=== PATIENT | female | born 1950 | race Caucasian/White ===

== ENCOUNTER → 2021-02-04 | Outpatient (CLI) | payer MEDICARE | LOC: KOH-I 11:10 | DX: M14.60 Charcot's joint, unspecified site (principal); M19.072 Primary osteoarthritis, left ankle and foot; M19.071 Primary osteoarthritis, right ankle and foot | CPT/HCPCS: 73610; 73630 ==

== ENCOUNTER → 2021-02-08 | Outpatient (CLI) | payer MEDICARE | LOC: KOH-I 08:15 | DX: E11.610 Type 2 diabetes mellitus with diabetic neuropathic arthropathy (principal); E11.621 Type 2 diabetes mellitus with foot ulcer; L97.529 Non-pressure chronic ulcer of other part of left foot with unspecified severity | CPT/HCPCS: 73718 ==

== ENCOUNTER → 2021-05-22 | Outpatient (CLI) | payer MEDICARE ==
[2021-05-22 15:12] LABS: HEMOGLOBIN 8.5 gm/dl (12.3-15.3); RED BLOOD COUNT 3.19 M/UL (4.00-5.10); WHITE BLOOD COUNT 6.9 K/UL (4.5-11.0)
[2021-05-22 15:32] LABS: BUN/CREATININE RATIO 16 (0-10)
== END ==
LOC: OPSV 13:50
PROVIDERS: Internal Medicine Infectious Disease
DX: E11.628 Type 2 diabetes mellitus with other skin complications (principal); S91.302D Unspecified open wound, left foot, subsequent encounter
CPT/HCPCS: 80053; 85025; 86140

== ENCOUNTER → 2021-05-23 | Outpatient (CLI) | payer MEDICARE | LOC: WCC 14:15 | DX: E11.621 Type 2 diabetes mellitus with foot ulcer (principal); L97.425 Non-pressure chronic ulcer of left heel and midfoot with muscle involvement without evidence of necrosis; E11.610 Type 2 diabetes mellitus with diabetic neuropathic arthropathy; I11.9 Hypertensive heart disease without heart failure; I25.10 Atherosclerotic heart disease of native coronary artery without angina pectoris; I48.91 Unspecified atrial fibrillation; E11.40 Type 2 diabetes mellitus with diabetic neuropathy, unspecified; F17.210 Nicotine dependence, cigarettes, uncomplicated; E66.01 Morbid (severe) obesity due to excess calories; Z68.34 Body mass index [BMI] 34.0-34.9, adult; Z79.2 Long term (current) use of antibiotics; Z79.899 Other long term (current) drug therapy ==

== ENCOUNTER → 2021-06-07 | Outpatient (CLI) | payer MEDICARE | LOC: WCC 09:27 | DX: E11.621 Type 2 diabetes mellitus with foot ulcer (principal); I10 Essential (primary) hypertension; L97.922 Non-pressure chronic ulcer of unspecified part of left lower leg with fat layer exposed; I25.10 Atherosclerotic heart disease of native coronary artery without angina pectoris; I48.91 Unspecified atrial fibrillation; E11.40 Type 2 diabetes mellitus with diabetic neuropathy, unspecified; E66.01 Morbid (severe) obesity due to excess calories; M14.672 Charcot's joint, left ankle and foot; Z68.34 Body mass index [BMI] 34.0-34.9, adult; Z79.899 Other long term (current) drug therapy ==

== ENCOUNTER → 2021-06-13 | Outpatient (CLI) | payer MEDICARE | LOC: WCC 14:42 | DX: E11.621 Type 2 diabetes mellitus with foot ulcer (principal); L97.525 Non-pressure chronic ulcer of other part of left foot with muscle involvement without evidence of necrosis; E11.610 Type 2 diabetes mellitus with diabetic neuropathic arthropathy; E11.40 Type 2 diabetes mellitus with diabetic neuropathy, unspecified; D64.9 Anemia, unspecified; I10 Essential (primary) hypertension; I25.10 Atherosclerotic heart disease of native coronary artery without angina pectoris; I48.91 Unspecified atrial fibrillation; Z72.0 Tobacco use; E66.01 Morbid (severe) obesity due to excess calories | CPT/HCPCS: 87070; 87205 ==

== ENCOUNTER → 2021-06-25 | Outpatient (CLI) | payer MEDICARE | LOC: WCC 14:00 | DX: E11.621 Type 2 diabetes mellitus with foot ulcer (principal); L97.422 Non-pressure chronic ulcer of left heel and midfoot with fat layer exposed; E11.610 Type 2 diabetes mellitus with diabetic neuropathic arthropathy; I10 Essential (primary) hypertension; I25.10 Atherosclerotic heart disease of native coronary artery without angina pectoris; I48.91 Unspecified atrial fibrillation; E66.01 Morbid (severe) obesity due to excess calories; Z68.34 Body mass index [BMI] 34.0-34.9, adult; Z79.899 Other long term (current) drug therapy ==

== ENCOUNTER → 2021-07-02 | Outpatient (CLI) | payer MEDICARE | LOC: WCC 14:13 | DX: E11.621 Type 2 diabetes mellitus with foot ulcer (principal); L97.425 Non-pressure chronic ulcer of left heel and midfoot with muscle involvement without evidence of necrosis; E11.40 Type 2 diabetes mellitus with diabetic neuropathy, unspecified; E11.610 Type 2 diabetes mellitus with diabetic neuropathic arthropathy; I11.9 Hypertensive heart disease without heart failure; I25.10 Atherosclerotic heart disease of native coronary artery without angina pectoris; I48.91 Unspecified atrial fibrillation; E66.01 Morbid (severe) obesity due to excess calories; F17.200 Nicotine dependence, unspecified, uncomplicated; Z68.34 Body mass index [BMI] 34.0-34.9, adult; Z79.899 Other long term (current) drug therapy ==

== ENCOUNTER → 2021-07-15 | Outpatient (CLI) | payer MEDICARE | LOC: WCC 15:00 | DX: E11.621 Type 2 diabetes mellitus with foot ulcer (principal); L97.422 Non-pressure chronic ulcer of left heel and midfoot with fat layer exposed; I10 Essential (primary) hypertension; I25.10 Atherosclerotic heart disease of native coronary artery without angina pectoris; I48.91 Unspecified atrial fibrillation; E11.40 Type 2 diabetes mellitus with diabetic neuropathy, unspecified; E66.01 Morbid (severe) obesity due to excess calories; E11.610 Type 2 diabetes mellitus with diabetic neuropathic arthropathy; Z68.34 Body mass index [BMI] 34.0-34.9, adult ==

== ENCOUNTER → 2021-07-29 | Outpatient (CLI) | payer MEDICARE | LOC: WCC 11:17 | DX: E11.621 Type 2 diabetes mellitus with foot ulcer (principal); L97.422 Non-pressure chronic ulcer of left heel and midfoot with fat layer exposed; Z68.34 Body mass index [BMI] 34.0-34.9, adult; E11.40 Type 2 diabetes mellitus with diabetic neuropathy, unspecified; I48.91 Unspecified atrial fibrillation; D64.9 Anemia, unspecified; I10 Essential (primary) hypertension; I25.10 Atherosclerotic heart disease of native coronary artery without angina pectoris; E66.01 Morbid (severe) obesity due to excess calories; E11.610 Type 2 diabetes mellitus with diabetic neuropathic arthropathy ==

== ENCOUNTER → 2021-08-05 | Outpatient (CLI) | payer MEDICARE | LOC: RAD 14:35 | DX: E11.621 Type 2 diabetes mellitus with foot ulcer (principal); L97.519 Non-pressure chronic ulcer of other part of right foot with unspecified severity | CPT/HCPCS: 73630 ==

== ENCOUNTER → 2021-08-05 | Outpatient (CLI) | payer MEDICARE | LOC: WCC 11:43 | DX: E11.621 Type 2 diabetes mellitus with foot ulcer (principal); L97.525 Non-pressure chronic ulcer of other part of left foot with muscle involvement without evidence of necrosis; I10 Essential (primary) hypertension; I25.10 Atherosclerotic heart disease of native coronary artery without angina pectoris; I48.91 Unspecified atrial fibrillation; E11.40 Type 2 diabetes mellitus with diabetic neuropathy, unspecified; E66.01 Morbid (severe) obesity due to excess calories; E11.610 Type 2 diabetes mellitus with diabetic neuropathic arthropathy; Z68.34 Body mass index [BMI] 34.0-34.9, adult | CPT/HCPCS: 87070; 87077; 87186; 87205 ==

== ENCOUNTER → 2021-08-12 | Outpatient (CLI) | payer MEDICARE | END | disposition home or self-care (01) | LOC: WCC 11:35 | DX: E11.621 Type 2 diabetes mellitus with foot ulcer (principal); L97.422 Non-pressure chronic ulcer of left heel and midfoot with fat layer exposed; L97.412 Non-pressure chronic ulcer of right heel and midfoot with fat layer exposed; I10 Essential (primary) hypertension; I25.10 Atherosclerotic heart disease of native coronary artery without angina pectoris; I48.91 Unspecified atrial fibrillation; E11.40 Type 2 diabetes mellitus with diabetic neuropathy, unspecified; M14.672 Charcot's joint, left ankle and foot; R60.0 Localized edema; E66.01 Morbid (severe) obesity due to excess calories; Z79.899 Other long term (current) drug therapy; Z68.34 Body mass index [BMI] 34.0-34.9, adult | CPT/HCPCS: 87070; 87077; 87186; 87205 ==

== ENCOUNTER → 2021-08-19 | Outpatient (CLI) | payer MEDICARE | LOC: WCC 08:39 | DX: E11.621 Type 2 diabetes mellitus with foot ulcer (principal); L97.522 Non-pressure chronic ulcer of other part of left foot with fat layer exposed; D64.9 Anemia, unspecified; E11.40 Type 2 diabetes mellitus with diabetic neuropathy, unspecified; I48.91 Unspecified atrial fibrillation; E11.610 Type 2 diabetes mellitus with diabetic neuropathic arthropathy; I10 Essential (primary) hypertension; I25.10 Atherosclerotic heart disease of native coronary artery without angina pectoris; Z72.0 Tobacco use; E66.01 Morbid (severe) obesity due to excess calories; Z68.34 Body mass index [BMI] 34.0-34.9, adult ==

== ENCOUNTER → 2021-09-10 | Outpatient (CLI) | payer MEDICARE | LOC: WCC 08:36 | DX: E11.621 Type 2 diabetes mellitus with foot ulcer (principal); L97.425 Non-pressure chronic ulcer of left heel and midfoot with muscle involvement without evidence of necrosis; L97.412 Non-pressure chronic ulcer of right heel and midfoot with fat layer exposed; I10 Essential (primary) hypertension; I25.10 Atherosclerotic heart disease of native coronary artery without angina pectoris; I48.91 Unspecified atrial fibrillation; E11.40 Type 2 diabetes mellitus with diabetic neuropathy, unspecified; E66.01 Morbid (severe) obesity due to excess calories; M14.672 Charcot's joint, left ankle and foot; E11.36 Type 2 diabetes mellitus with diabetic cataract; H26.9 Unspecified cataract; I25.2 Old myocardial infarction; Z72.0 Tobacco use; Z95.828 Presence of other vascular implants and grafts | CPT/HCPCS: 87070; 87077; 87186; 87205 ==

== ENCOUNTER → 2021-09-17 | Outpatient (CLI) | payer MEDICARE | LOC: HEART 5 12:51 → EMI 12:51 → HEART 5 13:30 | DX: E11.621 Type 2 diabetes mellitus with foot ulcer (principal); I10 Essential (primary) hypertension; I25.10 Atherosclerotic heart disease of native coronary artery without angina pectoris; I48.91 Unspecified atrial fibrillation; E11.40 Type 2 diabetes mellitus with diabetic neuropathy, unspecified; Z72.0 Tobacco use; E66.01 Morbid (severe) obesity due to excess calories; M14.672 Charcot's joint, left ankle and foot; R60.0 Localized edema; L03.116 Cellulitis of left lower limb | CPT/HCPCS: 73718; 93925; 93970 ==

== ENCOUNTER → 2021-09-18 | Outpatient (CLI) | payer MEDICARE | END | disposition home or self-care (01) | LOC: WCC 08:15 | PROC: 0KBW0ZZ Excision of Left Foot Muscle, Open Approach (ICD-10-PCS; principal; 2021-09-18) | PROC: 0JBQ0ZZ Excision of Right Foot Subcutaneous Tissue and Fascia, Open Approach (ICD-10-PCS; 2021-09-18) | DX: E11.621 Type 2 diabetes mellitus with foot ulcer (principal); L97.425 Non-pressure chronic ulcer of left heel and midfoot with muscle involvement without evidence of necrosis; L97.412 Non-pressure chronic ulcer of right heel and midfoot with fat layer exposed; E11.610 Type 2 diabetes mellitus with diabetic neuropathic arthropathy; B96.5 Pseudomonas (aeruginosa) (mallei) (pseudomallei) as the cause of diseases classified elsewhere; I48.91 Unspecified atrial fibrillation; I10 Essential (primary) hypertension; I25.10 Atherosclerotic heart disease of native coronary artery without angina pectoris; E11.36 Type 2 diabetes mellitus with diabetic cataract; H26.9 Unspecified cataract; I25.2 Old myocardial infarction; E66.01 Morbid (severe) obesity due to excess calories; Z68.34 Body mass index [BMI] 34.0-34.9, adult; Z79.2 Long term (current) use of antibiotics; Z79.899 Other long term (current) drug therapy ==

== ENCOUNTER → 2021-10-02 | Outpatient (CLI) | payer MEDICARE | LOC: WCC 08:58 | DX: E11.621 Type 2 diabetes mellitus with foot ulcer (principal); L97.425 Non-pressure chronic ulcer of left heel and midfoot with muscle involvement without evidence of necrosis; L97.412 Non-pressure chronic ulcer of right heel and midfoot with fat layer exposed; I10 Essential (primary) hypertension; I25.10 Atherosclerotic heart disease of native coronary artery without angina pectoris; I48.91 Unspecified atrial fibrillation; E11.40 Type 2 diabetes mellitus with diabetic neuropathy, unspecified; E66.01 Morbid (severe) obesity due to excess calories; M14.672 Charcot's joint, left ankle and foot; B96.5 Pseudomonas (aeruginosa) (mallei) (pseudomallei) as the cause of diseases classified elsewhere; E11.36 Type 2 diabetes mellitus with diabetic cataract; H26.9 Unspecified cataract; I25.2 Old myocardial infarction; Z72.0 Tobacco use ==

== ENCOUNTER → 2021-10-22 | Outpatient (CLI) | payer MEDICARE | LOC: WCC 07:31 | DX: E11.621 Type 2 diabetes mellitus with foot ulcer (principal); L97.425 Non-pressure chronic ulcer of left heel and midfoot with muscle involvement without evidence of necrosis; L97.412 Non-pressure chronic ulcer of right heel and midfoot with fat layer exposed; I10 Essential (primary) hypertension; I25.10 Atherosclerotic heart disease of native coronary artery without angina pectoris; I48.91 Unspecified atrial fibrillation; E11.40 Type 2 diabetes mellitus with diabetic neuropathy, unspecified; E66.01 Morbid (severe) obesity due to excess calories; M14.672 Charcot's joint, left ankle and foot; B96.5 Pseudomonas (aeruginosa) (mallei) (pseudomallei) as the cause of diseases classified elsewhere; E11.36 Type 2 diabetes mellitus with diabetic cataract; H26.9 Unspecified cataract; I25.2 Old myocardial infarction; Z72.0 Tobacco use; Z95.828 Presence of other vascular implants and grafts | CPT/HCPCS: 87070; 87077; 87186; 87205 ==

== ENCOUNTER → 2021-10-28 | Outpatient (CLI) | payer MEDICARE ==
[~2021-10-28] VITALS: Ht 175.3 cm; Wt 104.3 kg
== END ==
LOC: OPSV 11:48
DX: A49.02 Methicillin resistant Staphylococcus aureus infection, unspecified site (principal)
CPT/HCPCS: 96365; J0875; J7060

== ENCOUNTER → 2021-11-27 | Outpatient (CLI) | payer MEDICARE | LOC: WCC 08:18 | DX: E11.621 Type 2 diabetes mellitus with foot ulcer (principal); L97.425 Non-pressure chronic ulcer of left heel and midfoot with muscle involvement without evidence of necrosis; L97.412 Non-pressure chronic ulcer of right heel and midfoot with fat layer exposed; E11.40 Type 2 diabetes mellitus with diabetic neuropathy, unspecified; I11.9 Hypertensive heart disease without heart failure; D64.9 Anemia, unspecified; E11.610 Type 2 diabetes mellitus with diabetic neuropathic arthropathy; I25.10 Atherosclerotic heart disease of native coronary artery without angina pectoris; I48.91 Unspecified atrial fibrillation; E66.01 Morbid (severe) obesity due to excess calories; B96.5 Pseudomonas (aeruginosa) (mallei) (pseudomallei) as the cause of diseases classified elsewhere; F17.200 Nicotine dependence, unspecified, uncomplicated; Z68.34 Body mass index [BMI] 34.0-34.9, adult; Z79.899 Other long term (current) drug therapy ==

== ENCOUNTER → 2021-12-12 | Outpatient (CLI) | payer MEDICARE | END | disposition home or self-care (01) | LOC: WCC 07:56 | DX: T81.31XA Disruption of external operation (surgical) wound, not elsewhere classified, initial encounter (principal); E11.9 Type 2 diabetes mellitus without complications; E11.622 Type 2 diabetes mellitus with other skin ulcer; L97.812 Non-pressure chronic ulcer of other part of right lower leg with fat layer exposed; E66.01 Morbid (severe) obesity due to excess calories; Z68.42 Body mass index [BMI] 45.0-49.9, adult ==

== ENCOUNTER → 2021-12-19 | Outpatient (CLI) | payer MEDICARE | LOC: WCC 08:25 | DX: E11.621 Type 2 diabetes mellitus with foot ulcer (principal); L97.425 Non-pressure chronic ulcer of left heel and midfoot with muscle involvement without evidence of necrosis; I25.10 Atherosclerotic heart disease of native coronary artery without angina pectoris; I48.91 Unspecified atrial fibrillation; E11.40 Type 2 diabetes mellitus with diabetic neuropathy, unspecified; E11.610 Type 2 diabetes mellitus with diabetic neuropathic arthropathy; I11.9 Hypertensive heart disease without heart failure; E66.01 Morbid (severe) obesity due to excess calories; B96.5 Pseudomonas (aeruginosa) (mallei) (pseudomallei) as the cause of diseases classified elsewhere; Z72.0 Tobacco use; Z68.34 Body mass index [BMI] 34.0-34.9, adult; Z79.84 Long term (current) use of oral hypoglycemic drugs; Z79.899 Other long term (current) drug therapy ==

== ENCOUNTER → 2021-12-26 | Outpatient (CLI) | payer MEDICARE | LOC: WCC 09:41 | DX: E11.621 Type 2 diabetes mellitus with foot ulcer (principal); L97.425 Non-pressure chronic ulcer of left heel and midfoot with muscle involvement without evidence of necrosis; I10 Essential (primary) hypertension; I25.10 Atherosclerotic heart disease of native coronary artery without angina pectoris; I48.91 Unspecified atrial fibrillation; E11.40 Type 2 diabetes mellitus with diabetic neuropathy, unspecified; E66.01 Morbid (severe) obesity due to excess calories; M14.672 Charcot's joint, left ankle and foot; E11.36 Type 2 diabetes mellitus with diabetic cataract; H26.9 Unspecified cataract; I25.2 Old myocardial infarction; Z72.0 Tobacco use; Z95.828 Presence of other vascular implants and grafts ==

== ENCOUNTER → 2021-12-30 | Outpatient (CLI) | payer MEDICARE ==
[~2021-12-30] MED LIST: ALDACTONE25 MG PO; ASPIRIN CHEWABL81 MG PO; CILOSTAZOL50 MG PO; COZAAR100 MG PO; ELIQUIS5 MG PO; HYDROCODON-ACE1 EAC4 PO; IRON325 M1 PO; ISOSORBIDE MONO60 MG PO; JANUMET 50-1,01 EACH PO; LASIX 40 MG TAB40 MG PO; LIPITOR40 MG PO; NEURONTIN600 MG PO; OMEPRAZOLE40 MG PO; TOPROL XL100 MG PO; VITAMIN D 40400 UNIT PO
[2021-12-30 12:06] LABS: HEMOGLOBIN 10.1 gm/dl (12.3-15.3); RED BLOOD COUNT 3.66 M/UL (4.00-5.10); WHITE BLOOD COUNT 6.5 K/UL (4.5-11.0)
== END ==
LOC: LAB 11:39
PROVIDERS: Internal Medicine Cardiovascular Disease
DX: R06.02 Shortness of breath (principal); I20.8 Other forms of angina pectoris
CPT/HCPCS: 36415; 71046; 80048; 85025; J7030

== ENCOUNTER → 2022-01-01 | Outpatient (CLI) | payer MEDICARE | LOC: CATH 11:42 | DX: I25.118 Atherosclerotic heart disease of native coronary artery with other forms of angina pectoris (principal); I42.9 Cardiomyopathy, unspecified; I48.0 Paroxysmal atrial fibrillation; I10 Essential (primary) hypertension; E78.5 Hyperlipidemia, unspecified; E11.9 Type 2 diabetes mellitus without complications; Z79.01 Long term (current) use of anticoagulants; Z79.82 Long term (current) use of aspirin; Z79.899 Other long term (current) drug therapy; Z20.822 Contact with and (suspected) exposure to COVID-19 | CPT/HCPCS: 82962; 99152; 99153; C1769; C1894; J1644; J2250; J3010; J7030; Q9967 ==

== ENCOUNTER → 2022-01-09 | Outpatient (CLI) | payer MEDICARE | LOC: WCC 08:29 | DX: E11.621 Type 2 diabetes mellitus with foot ulcer (principal); L97.525 Non-pressure chronic ulcer of other part of left foot with muscle involvement without evidence of necrosis; I27.20 Pulmonary hypertension, unspecified; D64.9 Anemia, unspecified; E11.40 Type 2 diabetes mellitus with diabetic neuropathy, unspecified; I48.91 Unspecified atrial fibrillation; I10 Essential (primary) hypertension; I25.10 Atherosclerotic heart disease of native coronary artery without angina pectoris; E66.01 Morbid (severe) obesity due to excess calories; E11.610 Type 2 diabetes mellitus with diabetic neuropathic arthropathy; Z68.34 Body mass index [BMI] 34.0-34.9, adult ==

== ENCOUNTER → 2022-01-16 | Outpatient (CLI) | payer MEDICARE | LOC: WCC 08:01 | DX: E11.621 Type 2 diabetes mellitus with foot ulcer (principal); L97.425 Non-pressure chronic ulcer of left heel and midfoot with muscle involvement without evidence of necrosis; L97.412 Non-pressure chronic ulcer of right heel and midfoot with fat layer exposed; I10 Essential (primary) hypertension; I25.10 Atherosclerotic heart disease of native coronary artery without angina pectoris; I48.91 Unspecified atrial fibrillation; E11.40 Type 2 diabetes mellitus with diabetic neuropathy, unspecified; E66.01 Morbid (severe) obesity due to excess calories; M14.672 Charcot's joint, left ankle and foot; D64.9 Anemia, unspecified; E11.36 Type 2 diabetes mellitus with diabetic cataract; H26.9 Unspecified cataract; I25.2 Old myocardial infarction; Z72.0 Tobacco use; Z95.828 Presence of other vascular implants and grafts ==

== ENCOUNTER → 2022-01-20 | Outpatient (CLI) | payer MEDICARE | LOC: HEART 5 14:09 | DX: I27.20 Pulmonary hypertension, unspecified (principal) | CPT/HCPCS: 94060; 94729 ==

== ENCOUNTER → 2022-01-23 | Outpatient (CLI) | payer MEDICARE ==
[~2022-01-23] MED LIST changes: +ALDACTONE 25MG25 MG PO; +ASPIRIN EC325 MG PO; +FERROUS GLUCON324 M1 PO; +ISOSORBIDE MONO30 MG PO; +PROAIR HFA8.5 GM INH
== END ==
LOC: WCC 09:01
DX: E11.621 Type 2 diabetes mellitus with foot ulcer (principal); L97.422 Non-pressure chronic ulcer of left heel and midfoot with fat layer exposed; L97.412 Non-pressure chronic ulcer of right heel and midfoot with fat layer exposed; I10 Essential (primary) hypertension; I25.10 Atherosclerotic heart disease of native coronary artery without angina pectoris; I48.91 Unspecified atrial fibrillation; E11.40 Type 2 diabetes mellitus with diabetic neuropathy, unspecified; E11.610 Type 2 diabetes mellitus with diabetic neuropathic arthropathy; E66.01 Morbid (severe) obesity due to excess calories; Z68.34 Body mass index [BMI] 34.0-34.9, adult; Z72.0 Tobacco use; Z79.899 Other long term (current) drug therapy

== ENCOUNTER → 2022-01-27 | Outpatient (CLI) | payer MEDICARE ==
[2022-01-27 11:09] LABS: HEMOGLOBIN 10.5 gm/dl (12.3-15.3); RED BLOOD COUNT 3.92 M/UL (4.00-5.10); WHITE BLOOD COUNT 5.2 K/UL (4.5-11.0)
[2022-01-27 11:30] LABS: BUN/CREATININE RATIO 22 (0-10)
== END ==
LOC: LAB 10:48
PROVIDERS: Internal Medicine Cardiovascular Disease
DX: I27.20 Pulmonary hypertension, unspecified (principal); I10 Essential (primary) hypertension; I25.10 Atherosclerotic heart disease of native coronary artery without angina pectoris
CPT/HCPCS: 36415; 80048; 85025

== ENCOUNTER → 2022-01-29 | Outpatient (CLI) | payer MEDICARE | LOC: CATH 11:19 | DX: I27.20 Pulmonary hypertension, unspecified (principal); I25.10 Atherosclerotic heart disease of native coronary artery without angina pectoris; I48.0 Paroxysmal atrial fibrillation; I25.5 Ischemic cardiomyopathy; I11.0 Hypertensive heart disease with heart failure; I50.22 Chronic systolic (congestive) heart failure; K21.9 Gastro-esophageal reflux disease without esophagitis; E78.5 Hyperlipidemia, unspecified; E11.9 Type 2 diabetes mellitus without complications; Z87.891 Personal history of nicotine dependence; Z79.01 Long term (current) use of anticoagulants; Z79.84 Long term (current) use of oral hypoglycemic drugs; Z79.899 Other long term (current) drug therapy | CPT/HCPCS: 71045; 82962; 99152; 99153; C1751; J0153; J0461; J1644; J2250; J3010; J7030 ==

== ENCOUNTER → 2022-02-06 | Outpatient (CLI) | payer MEDICARE | LOC: WCC 08:23 | DX: E11.621 Type 2 diabetes mellitus with foot ulcer (principal); L97.425 Non-pressure chronic ulcer of left heel and midfoot with muscle involvement without evidence of necrosis; L97.412 Non-pressure chronic ulcer of right heel and midfoot with fat layer exposed; I10 Essential (primary) hypertension; I25.10 Atherosclerotic heart disease of native coronary artery without angina pectoris; I48.91 Unspecified atrial fibrillation; E11.40 Type 2 diabetes mellitus with diabetic neuropathy, unspecified; E11.610 Type 2 diabetes mellitus with diabetic neuropathic arthropathy; E66.01 Morbid (severe) obesity due to excess calories; Z68.34 Body mass index [BMI] 34.0-34.9, adult; Z72.0 Tobacco use; Z79.899 Other long term (current) drug therapy ==

== ENCOUNTER → 2022-02-20 | Outpatient (CLI) | payer MEDICARE | LOC: WCC 08:22 | DX: E11.621 Type 2 diabetes mellitus with foot ulcer (principal); L97.425 Non-pressure chronic ulcer of left heel and midfoot with muscle involvement without evidence of necrosis; L97.411 Non-pressure chronic ulcer of right heel and midfoot limited to breakdown of skin; I10 Essential (primary) hypertension; I25.10 Atherosclerotic heart disease of native coronary artery without angina pectoris; I48.91 Unspecified atrial fibrillation; E11.40 Type 2 diabetes mellitus with diabetic neuropathy, unspecified; E66.01 Morbid (severe) obesity due to excess calories; M14.672 Charcot's joint, left ankle and foot; E11.36 Type 2 diabetes mellitus with diabetic cataract; H26.9 Unspecified cataract; I25.2 Old myocardial infarction; Z72.0 Tobacco use ==

== ENCOUNTER → 2022-03-20 | Outpatient (CLI) | payer MEDICARE | LOC: WCC 09:43 | DX: E11.621 Type 2 diabetes mellitus with foot ulcer (principal); L97.425 Non-pressure chronic ulcer of left heel and midfoot with muscle involvement without evidence of necrosis; I10 Essential (primary) hypertension; I25.10 Atherosclerotic heart disease of native coronary artery without angina pectoris; I48.91 Unspecified atrial fibrillation; E11.40 Type 2 diabetes mellitus with diabetic neuropathy, unspecified; E11.610 Type 2 diabetes mellitus with diabetic neuropathic arthropathy; Z72.0 Tobacco use; E66.01 Morbid (severe) obesity due to excess calories; Z79.84 Long term (current) use of oral hypoglycemic drugs; Z79.899 Other long term (current) drug therapy; Z68.34 Body mass index [BMI] 34.0-34.9, adult ==

== ENCOUNTER → 2022-04-17 | Outpatient (CLI) | payer MEDICARE | END | disposition home or self-care (01) | LOC: WCC 14:56 | DX: E11.621 Type 2 diabetes mellitus with foot ulcer (principal); L97.425 Non-pressure chronic ulcer of left heel and midfoot with muscle involvement without evidence of necrosis; I10 Essential (primary) hypertension; I25.10 Atherosclerotic heart disease of native coronary artery without angina pectoris; I48.91 Unspecified atrial fibrillation; E11.40 Type 2 diabetes mellitus with diabetic neuropathy, unspecified; E11.610 Type 2 diabetes mellitus with diabetic neuropathic arthropathy; D64.9 Anemia, unspecified; E66.01 Morbid (severe) obesity due to excess calories; F17.200 Nicotine dependence, unspecified, uncomplicated; Z68.34 Body mass index [BMI] 34.0-34.9, adult; Z79.899 Other long term (current) drug therapy ==

== ENCOUNTER → 2022-06-03 | Outpatient (CLI) | payer MEDICARE | END | disposition home or self-care (01) | LOC: WCC 07:29 | DX: E11.621 Type 2 diabetes mellitus with foot ulcer (principal); L97.425 Non-pressure chronic ulcer of left heel and midfoot with muscle involvement without evidence of necrosis; L97.412 Non-pressure chronic ulcer of right heel and midfoot with fat layer exposed; I10 Essential (primary) hypertension; I25.10 Atherosclerotic heart disease of native coronary artery without angina pectoris; I48.91 Unspecified atrial fibrillation; E11.40 Type 2 diabetes mellitus with diabetic neuropathy, unspecified; E11.610 Type 2 diabetes mellitus with diabetic neuropathic arthropathy; F17.210 Nicotine dependence, cigarettes, uncomplicated; E66.01 Morbid (severe) obesity due to excess calories; Z68.34 Body mass index [BMI] 34.0-34.9, adult ==

== ENCOUNTER → 2022-06-12 | Outpatient (CLI) | payer MEDICARE | LOC: WCC 07:57 | DX: E11.621 Type 2 diabetes mellitus with foot ulcer (principal); L97.425 Non-pressure chronic ulcer of left heel and midfoot with muscle involvement without evidence of necrosis; L97.415 Non-pressure chronic ulcer of right heel and midfoot with muscle involvement without evidence of necrosis; I11.9 Hypertensive heart disease without heart failure; I25.10 Atherosclerotic heart disease of native coronary artery without angina pectoris; I48.91 Unspecified atrial fibrillation; E11.40 Type 2 diabetes mellitus with diabetic neuropathy, unspecified; E11.610 Type 2 diabetes mellitus with diabetic neuropathic arthropathy; Z72.0 Tobacco use; E66.01 Morbid (severe) obesity due to excess calories; Z79.899 Other long term (current) drug therapy ==

== ENCOUNTER → 2022-06-17 | Outpatient (CLI) | payer MEDICARE | LOC: WCC 08:08 | DX: E11.621 Type 2 diabetes mellitus with foot ulcer (principal); L97.425 Non-pressure chronic ulcer of left heel and midfoot with muscle involvement without evidence of necrosis; L97.412 Non-pressure chronic ulcer of right heel and midfoot with fat layer exposed; I10 Essential (primary) hypertension; I25.10 Atherosclerotic heart disease of native coronary artery without angina pectoris; I48.91 Unspecified atrial fibrillation; E11.40 Type 2 diabetes mellitus with diabetic neuropathy, unspecified; E66.01 Morbid (severe) obesity due to excess calories; M14.672 Charcot's joint, left ankle and foot; E11.36 Type 2 diabetes mellitus with diabetic cataract; H26.9 Unspecified cataract; I25.2 Old myocardial infarction; Z72.0 Tobacco use ==

== ENCOUNTER → 2022-06-26 | Outpatient (CLI) | payer MEDICARE | LOC: WCC 07:51 | DX: E11.621 Type 2 diabetes mellitus with foot ulcer (principal); L97.425 Non-pressure chronic ulcer of left heel and midfoot with muscle involvement without evidence of necrosis; L97.412 Non-pressure chronic ulcer of right heel and midfoot with fat layer exposed; I10 Essential (primary) hypertension; I25.10 Atherosclerotic heart disease of native coronary artery without angina pectoris; I48.91 Unspecified atrial fibrillation; E11.40 Type 2 diabetes mellitus with diabetic neuropathy, unspecified; E66.01 Morbid (severe) obesity due to excess calories; M14.672 Charcot's joint, left ankle and foot; Z72.0 Tobacco use ==